=== PATIENT | female | born 1965 | race Caucasian/White ===

== ENCOUNTER 2017-04-04 07:20 | Emergency (ER) | payer OTHER ==
--- NOTE | 2017-04-04 07:43 | UC ---
Respiratory Complaint HPI - HPI Summary HPI Summary: 51 yo female with 12 day hx of facial pressure and pain/post nasal drip and cough Now feels like it is in her chest low grade fever no Cp or SOB - History of Current Complaint Chief Complaint: UCRespiratory Stated Complaint: BACK PAIN,FACIAL PRESSURE Time Seen by Provider: 04/04/17 07:36 Hx Obtained From: Patient Hx Last Menstrual Period: does not get a menses d/t having an abalation Onset/Duration: Gradual Onset, Lasting Days - 12 Timing: Constant Severity Initially: Mild Severity Currently: Moderate Pain Intensity: 4 Pain Scale Used: 0-10 Numeric Character: Cough: Nonproductive Associated Signs And Symptoms: Positive: Fever - low grade, Nasal Congestion, Hoarseness, Sinus Discomfort - Allergies/Home Medications Allergies/Adverse Reactions: Allergies Allergy/AdvReac Type Severity Reaction Status Date / Time No Known Allergies Allergy Verified 01/02/16 15:17 Home Medications: Home Medications Atomoxetine(NF) [Strattera(NF)] 60 mg PO DAILY 04/04/17 [History Confirmed 04/04] PMH/Surg Hx/FS Hx/Imm Hx Previously Healthy: Yes Endocrine History: Thyroid Disease - Surgical History Surgical History: Yes Surgery Procedure, Year, and Place: ablation - Family History Known Family History: Positive: Cardiac Disease Negative: Hypertension, Diabetes - Social History Alcohol Use: Rare Substance Use Type: None Smoking Status (MU): Never Smoked Tobacco - Immunization History Most Recent Influenza Vaccination: [id number] Review of Systems Constitutional: Fever Skin: Negative Eyes: Negative ENT: Dental Pain, Nasal Discharge, Sinus Congestion, Sinus Pain/Tenderness Respiratory: Cough Cardiovascular: Negative Gastrointestinal: Negative Genitourinary: Negative Motor: Negative Neurovascular: Negative Musculoskeletal: Negative Neurological: Negative Psychological: Negative All Other Systems Reviewed And Are Negative: Yes Physical Exam Triage Information Reviewed: Yes Appearance: Well-Appearing, No Pain Distress, Well-Nourished Vital Signs: Initial Vital Signs Temp 97.9 F 04/04/17 07:25 Pulse 84 04/04/17 07:25 Resp 16 04/04/17 07:25 BP 139/80 04/04/17 07:25 Pulse Ox 98 04/04/17 07:25 Vital Signs Reviewed: Yes Eyes: Positive: Conjunctiva Clear ENT: Positive: Hearing grossly normal, Nasal congestion, Nasal drainage, TMs normal, Other: - bilat max sinus tenderness. Negative: Tonsillar swelling, Tonsillar exudate, Trismus, Muffled/hoarse voice Neck: Positive: Supple, Nontender, No Lymphadenopathy Respiratory: Positive: No respiratory distress, No accessory muscle use, Rhonchi - with forced expiration Cardiovascular: Positive: RRR, No Murmur Musculoskeletal: Positive: ROM Intact, No Edema Neurological: Positive: Alert Psychological Exam: Normal Skin Exam: Normal UC Diagnostic Evaluation - Laboratory O2 Sat by Pulse Oximetry: 98 - normal/not hypoxic Respiratory Course/Dx - Differential Dx/Diagnosis Provider Diagnoses: sinusitis. bronchitis Discharge - Discharge Plan Condition: Stable Disposition: HOME Prescriptions: Amoxicillin PO (*) [Amoxicillin 875 MG (*)] 875 mg PO BID #20 tab Patient Education Materials: Sinusitis (ED) Referrals: Reny Marcano MD [Primary Care Provider] - 5 Days (if not improved ) Additional Instructions: warm facial compresses saline nasal spray flonase
[2017-04-04 07:45] VITALS: BP 139/80
== END 2017-04-04 07:51 | disposition home or self-care (01) ==
LOC: UCCORT 07:20
DX: J32.9 Chronic sinusitis, unspecified (principal); J40 Bronchitis, not specified as acute or chronic; R50.9 Fever, unspecified; E07.9 Disorder of thyroid, unspecified
CPT/HCPCS: 99212; G0463

== ENCOUNTER 2018-01-11 08:01 | Emergency (ER) | payer OTHER ==
[2018-01-11 08:12] VITALS: BP 126/79
[2018-01-11] MEDS ORDERED: Benzonatate CAP* 100 MG PO ONE (08:28)
[2018-01-11] MEDS ORDERED: Albuterol HFA INHALER* 8 gm MDI INH ONE ×2 (08:28→08:31)
--- NOTE | 2018-01-11 08:32 | UC ---
Respiratory Complaint HPI - HPI Summary HPI Summary: 52 year old female with history of thyroid disease here with cough for two weeks. Reports symptoms started two weeks ago with generalized myalgia but no n/v/d. States rhinorrhea, congestion partially subsided but continued to have productive cough, prompting her to come to the ED. She states today she had SOB when she tried to go hiking but no JUSTICE with her ADLs or chest pain. No PE/DVT risk factor. - History of Current Complaint Chief Complaint: UCRespiratory Stated Complaint: COUGH, CONGESTION, ACHY Time Seen by Provider: 01/11/18 08:04 Hx Obtained From: Patient Hx Last Menstrual Period: ablasion Onset/Duration: Sudden Onset Severity Initially: Mild Pain Intensity: 0 Character: Cough: Productive Aggravating Factors: Recumbent Position Alleviating Factors: Upright Position Associated Signs And Symptoms: Positive: Dyspnea, Fever, Chills, Nasal Congestion - Allergies/Home Medications Allergies/Adverse Reactions: Allergies Allergy/AdvReac Type Severity Reaction Status Date / Time No Known Allergies Allergy Verified 01/11/18 08:12 PMH/Surg Hx/FS Hx/Imm Hx Previously Healthy: No Endocrine History: Hypothyroidism - Surgical History Surgical History: Yes Surgery Procedure, Year, and Place: ablation - Family History Known Family History: Positive: None, Cardiac Disease Negative: Hypertension, Diabetes - Social History Alcohol Use: Rare Substance Use Type: None Smoking Status (MU): Never Smoked Tobacco - Immunization History Most Recent Influenza Vaccination: [id number] Review of Systems Constitutional: Chills Skin: Negative Eyes: Negative ENT: Negative Respiratory: Shortness Of Breath, Cough Cardiovascular: Negative Gastrointestinal: Negative Genitourinary: Negative Motor: Negative Neurovascular: Negative Musculoskeletal: Negative Neurological: Negative Psychological: Negative All Other Systems Reviewed And Are Negative: Yes Physical Exam Triage Information Reviewed: Yes Vital Signs: Initial Vital Signs Temp 37.1 C 01/11/18 08:06 Pulse 97 01/11/18 08:06 Resp 18 01/11/18 08:06 BP 126/79 01/11/18 08:06 Pulse Ox 100 01/11/18 08:06 Vital Signs Reviewed: Yes Respiratory Exam: Normal Cardiovascular: Positive: RRR Musculoskeletal Exam: Normal Musculoskeletal: Positive: No Edema Skin Exam: Normal UC Diagnostic Evaluation - Laboratory O2 Sat by Pulse Oximetry: 100 - Radiology Xray Interpretation: Positive (See Comments) - No consolidation but inflated lungs with concern for obstructive pathology. Radiology Interpretation Completed By: Radiologist Respiratory Course/Dx - Course Course Of Treatment: 52 year old female with URI and sob. No concern for ACS/ PE. Most likely reactive airway disease - Differential Dx/Diagnosis Differential Diagnosis/HQI/PQRI: Bronchitis, Laryngitis, Lower Resp Infection Provider Diagnoses: Bronchitis vs. Reactive airway disease Discharge - Sign-Out/Discharge Documenting (check all that apply): Discharge/Admit/Transfer - Discharge Plan Condition: Good Disposition: HOME Prescriptions: Azithromycin TAB* [Zithromax TAB (Z-MAURICE) 250 mg #6 tabs] 2 tab PO .TODAY, THEN 1 DAILY #1 maurice Benzonatate CAP* [Tessalon 100 MG CAP*] 100 mg PO TID PRN 5 Days #15 cap PRN Reason: Cough Patient Education Materials: Upper Respiratory Infection (ED), Acute Bronchitis (ED) Referrals: Rubi Lovelace MD [Primary Care Provider] - Additional Instructions: You need to follow up with your primary care doctor for referral to mechanical drawing teacher and repeat XRay. - Billing Disposition and Condition Condition: GOOD Disposition: HOME
--- NOTE | 2018-01-11 09:04 | RAD ---
INDICATION: 2 weeks cough and shortness of breath. COMPARISON: November 16, 2004 TECHNIQUE: Dual energy PA and routine lateral views of the chest were obtained. REPORT: Elevated lung volumes. No focal pulmonary lesion, compelling alveolar consolidation, pleural effusion, pneumothorax. The heart, pulmonary vasculature, and mediastinal contours are unremarkable. IMPRESSION: 1. No evidence for pneumonia. 2. Elevated lung volumes suggest potential obstructive lung disease.
== END 2018-01-11 09:14 | disposition home or self-care (01) ==
LOC: UCCORT 08:01
DX: R05 Cough (principal); M79.1 Myalgia; R06.02 Shortness of breath; J34.89 Other specified disorders of nose and nasal sinuses
CPT/HCPCS: 71046; 99213; A9270-GY; G0463

== ENCOUNTER 2018-09-18 18:08 | Emergency (ER) | payer OTHER ==
[2018-09-18 19:58] VITALS: BP 141/91
[2018-09-18] MEDS: Cephalexin CAP* 500 MG PO ONE (20:57)
--- NOTE | 2018-09-18 21:01 | UC ---
Complaint Female HPI - HPI Summary HPI Summary: Patient is a 53-year-old female who presents to the for right ear pain, sinus congestion, sore throat times several days. Patient also notes dysuria, hematuria and frequency that started yesterday. Past medical history of hyper thyroidism. Patient denies fever, abdominal pain, vomiting, flank pain. Symptoms are mild in severity. No current modifying factors. - History Of Current Complaint Chief Complaint: UCGeneralIllness Stated Complaint: EAR ACHE/URINARY Time Seen by Provider: 09/18/18 20:07 Hx Obtained From: Patient Hx Last Menstrual Period: ablasion Pain Intensity: 5 - Allergies/Home Medications Allergies/Adverse Reactions: Allergies Allergy/AdvReac Type Severity Reaction Status Date / Time No Known Allergies Allergy Verified 09/18/18 19:58 PMH/Surg Hx/FS Hx/Imm Hx Previously Healthy: Yes - Surgical History Surgical History: Yes Surgery Procedure, Year, and Place: ablation - Family History Known Family History: Positive: None, Cardiac Disease Negative: Hypertension, Diabetes - Social History Occupation: Employed Full-time Lives: With Family Alcohol Use: Rare Substance Use Type: None Smoking Status (MU): Never Smoked Tobacco - Immunization History Most Recent Influenza Vaccination: [id number] Review of Systems All Other Systems Reviewed And Are Negative: Yes Constitutional: Positive: Chills Skin: Positive: Negative Eyes: Positive: Negative ENT: Positive: Sore Throat, Ear Ache Respiratory: Positive: Negative Cardiovascular: Positive: Negative Gastrointestinal: Positive: Negative. Negative: Abdominal Pain, Vomiting, Nausea Genitourinary: Positive: Dysuria, Hematuria, Frequency Musculoskeletal: Positive: Negative Neurological: Positive: Negative Is Patient Immunocompromised?: No Physical Exam Triage Information Reviewed: Yes Appearance: Well-Appearing - Pt. sitting on bed in NAD> Vital Signs: Initial Vital Signs Temp 98.6 F 09/18/18 19:54 Pulse 104 09/18/18 19:54 Resp 16 09/18/18 19:54 BP 141/91 09/18/18 19:54 Pulse Ox 100 09/18/18 19:54 Vital Signs Reviewed: Yes Eye Exam: Normal Eyes: Positive: Conjunctiva Clear ENT: Positive: Other - Tonsilectomy. Injection throughout. Left TM unremarkable. Right TM retracted. Neck exam: Normal Neck: Positive: Supple, Nontender Respiratory: Positive: Chest non-tender, Lungs clear Cardiovascular: Positive: RRR, No Murmur Abdomen Description: Positive: Nontender, Soft. Negative: CVA Tenderness (R), CVA Tenderness (L) Neurological Exam: Normal Psychological Exam: Normal Skin Exam: Normal Complaint Female Dx - Course Course Of Treatment: Patient with upper respiratory symptoms as well as urinary symptoms. She is afebrile well-appearing. Urinalysis shows RBCs leukocytes, given symptoms will treat for suspected UTI with Keflex. Flonase prescribed for URI. Advised ibuprofen for pain as directed. Increase fluids and rest. Close follow-up with PCP. Return to the urgent care symptoms change or worsen. Patient understands and agrees with plan. First dose of antibiotic given tonight. - Differential Dx/Diagnosis Differential Diagnosis/HQI/PQRI: Renal Colic, Urinary Tract Infection Provider Diagnosis: UTI (urinary tract infection), URI (upper respiratory infection) Discharge - Sign-Out/Discharge Documenting (check all that apply): Patient Departure All imaging exams completed and their final reports reviewed: No Studies - Discharge Plan Condition: Good Disposition: HOME Prescriptions: Cephalexin CAP* [Keflex CAP*] 500 mg PO BID #20 cap Fluticasone NASAL SPRAY 50MCG* [Flonase NASAL SPRAY 50MCG*] 2 spray BOTH NARES DAILY #1 btl Patient Education Materials: Urinary Tract Infection in Women (ED), Upper Respiratory Infection (ED) Referrals: Monty Seay MD [Primary Care Provider] - Additional Instructions: Schedule a follow up appointment with PCP Medication as directed Increase fluids and rest Ibuprofen for pain as directed Return to UC or go to ER if symptoms change or worsen - Billing Disposition and Condition Condition: GOOD Disposition: Home - Attestation Statements Provider Attestation: Per institutional requirements, I have reviewed the chart, however, I was not consulted specifically or made aware of this patient by the midlevel provider. I did not personally evaluate, interact with , or disposition this patient.
== END 2018-09-18 20:59 | disposition home or self-care (01) ==
LOC: UCCORT 18:08
DX: N39.0 Urinary tract infection, site not specified (principal); J06.9 Acute upper respiratory infection, unspecified
CPT/HCPCS: 81003; 87077; 87086; 87186; 99212; A9270-GY; G0463

== ENCOUNTER 2019-03-14 21:35 | Emergency (ER) | payer OTHER ==
[2019-03-14 21:45] VITALS: BP 134/90
--- NOTE | 2019-03-14 21:56 | UC ---
Skin Complaint HPI - HPI Summary HPI Summary: Pt presents with concern about insect bite to right upper arm. Pt reports that she was bit ~ 1 week ago and has been applying antibiotic ointment and applying a bandage. She reports that the wound has been getting smaller but her family members thought that the wound "looked infected". Pt denies fever chills, drainage, red streaking or swelling. - History of Current Complaint Chief Complaint: UCSkin Time Seen by Provider: 03/14/19 21:42 Stated Complaint: BUG BITE Hx Obtained From: Patient Hx Last Menstrual Period: ablasion ?: No Onset/Duration: Sudden Onset, Lasting Days, Still Present, Resolved Skin Exposure Onset/Duration: Days Ago - 7 Timing: Constant Onset Severity: Moderate Current Severity: Mild Pain Intensity: 0 Location: Discrete - right upper lateral mid arm Character: Redness Aggravating Factor(s): Nothing Alleviating Factor(s): Other - antibiotic ointment and bandage Associated Signs & Symptoms: Positive: Negative Related History: Insect Bite/Sting - Allergy/Home Medications Allergies/Adverse Reactions: Allergies Allergy/AdvReac Type Severity Reaction Status Date / Time shellfish derived Allergy Difficulty Verified 03/14/19 21:45 Breathing PMH/Surg Hx/FS Hx/Imm Hx Previously Healthy: Yes - Surgical History Surgical History: Yes Surgery Procedure, Year, and Place: ablation - Family History Known Family History: Positive: None, Cardiac Disease Negative: Hypertension, Diabetes - Social History Occupation: Employed Full-time Lives: With Family Alcohol Use: Rare Substance Use Type: None Smoking Status (MU): Never Smoked Tobacco Have You Smoked in the Last Year: No - Immunization History Most Recent Influenza Vaccination: [id number] Most Recent Tetanus Shot: unknown Vaccination Up to Date: Yes Review of Systems All Other Systems Reviewed And Are Negative: Yes Constitutional: Positive: Negative Skin: Positive: Other - healing wound/insect bite right upper arm ENT: Positive: Negative Respiratory: Positive: Negative Cardiovascular: Positive: Negative Gastrointestinal: Positive: Negative Genitourinary: Positive: Negative Motor: Positive: Negative Neurovascular: Positive: Negative Musculoskeletal: Positive: Negative Neurological: Positive: Negative Psychological: Positive: Negative Is Patient Immunocompromised?: No Physical Exam Triage Information Reviewed: Yes Appearance: Well-Appearing Vital Signs: Initial Vital Signs Temp 97.9 F 03/14/19 21:41 Pulse 89 03/14/19 21:41 Resp 16 03/14/19 21:41 BP 134/90 03/14/19 21:41 Pulse Ox 100 03/14/19 21:41 Vital Signs Reviewed: Yes Eye Exam: Normal ENT: Positive: Hearing grossly normal Dental Exam: Normal Neck exam: Normal Respiratory: Positive: No respiratory distress Musculoskeletal Exam: Normal Neurological Exam: Normal Psychological Exam: Normal Skin Exam: Other - healing wound right lateral upper arm Course/Dx - Differential Diagnoses - Skin Complaint Differential Diagnoses: Cellulitis, MRSA - Diagnoses Provider Diagnosis: Healing wound Discharge - Sign-Out/Discharge Documenting (check all that apply): Patient Departure All imaging exams completed and their final reports reviewed: No Studies - Discharge Plan Condition: Stable Disposition: HOME Patient Education Materials: Insect Bite or Sting (ED), Acute Wound Care (ED) Referrals: Monty Seay MD [Primary Care Provider] - If Needed - Billing Disposition and Condition Condition: STABLE Disposition: Home - Attestation Statements Provider Attestation: Per institutional requirements, I have reviewed the chart, however, I was not consulted specifically or made aware of this patient by the midlevel provider. I did not personally evaluate, interact with , or disposition this patient.
== END 2019-03-14 21:54 | disposition home or self-care (01) ==
LOC: UCCORT 21:35
DX: S40.861A Insect bite (nonvenomous) of right upper arm, initial encounter (principal); W57.XXXA Bitten or stung by nonvenomous insect and other nonvenomous arthropods, initial encounter; Y93.9 Activity, unspecified; Y92.9 Unspecified place or not applicable
CPT/HCPCS: 99211; G0463

== ENCOUNTER → 2019-04-17 06:39 | Day surgery (SDC) | payer OTHER ==
[~2019-04-17 06:39] MED LIST: Acetaminophen TAB* 325 MG PO PRN; Buffered Lidocaine 1% SYRIN* 1 ML/SYRINGE INTRADERM ONE; Bupivacaine 0.25% SDV PF* 10 ML VIAL INJ ONE; Dexamethasone IV* 4 MG/ML 1 ML (4 MG) IV SLOW PU ONE; Dexamethasone IV* 4 MG/ML 1 ML (4 MG) ONE; DiMENhydriNATE IV* 50 MG/ML VIAL IV PUSH PRN; DiMENhydriNATE IV* 50 MG/ML VIAL ONE; Esmolol* 10 MG/ML 10 ML (100 mg) ONE; Lactated Ringers 1000 ML Bag* 1,000 ML IV SCH; Lidocaine 1% INJ* 10 MG/ML 30 ML SDV ONE; Lidocaine 2% PF * 5 ML VIAL ONE; Midazolam* 1 MG/ML 2 ML VIAL (2 MG) ONE; Naloxone* 0.4 MG/ML 1 ML VIAL IV PRN; Ondansetron INJ* 2 MG/ML VIAL ONE; Propofol* 10 MG/ML 20 ML BTL ONE; Scopolamine 1.5 mg* PATCH ONE; Scopolamine 1.5 mg* PATCH TRANSDERM SCH; Succinylcholine* 20 MG/ML 10 ML VIAL ONE; fentaNYL* 50 MCG/ML 2 ML VIAL (100 MCG VIAL) ONE; oxyCODONE/Acetamin 5/325 MG* TAB ONE; oxyCODONE/Acetamin 5/325 MG* TAB PO PRN
[2019-04-17] MEDS: fentaNYL* 50 MCG/ML 2 ML VIAL (100 MCG VIAL) IV PRN ×2 (12:04→12:30)
--- NOTE | 2019-04-17 13:29 | OP ---
CC: Dr. Donnell Stearns * DATE OF OPERATION: 04/17/19 - SDS DATE OF : 69 SERVICE: General Surgery. ATTENDING SURGEON: Keira Winston MD ENGINE EMISSION TECHNICIAN: Ana Calvillo NP ANESTHESIOLOGIST: Dr. Albert Aiken. ANESTHESIA: General endotracheal anesthesia. PREP-OP DIAGNOSIS: Right toxic adenoma, biopsied as Buckingham IV. POST-OP DIAGNOSIS: Right toxic adenoma, biopsied as Buckingham IV. OPERATIVE PROCEDURE: Right thyroid lobectomy. SPECIMEN: Right thyroid lobe. ESTIMATED BLOOD LOSS: Minimal, less than 10 cc. INDICATION FOR SURGERY: Ms. Meneses is a very pleasant 53-year-old female with a longstanding history of right thyroid toxic adenoma. She also had multiple other thyroid nodules that were biopsied and the one on the right side was also biopsied as Buckingham IV nodule. Given this and the fact that she also had a right toxic adenoma she wished to undergo a right thyroid lobectomy. She understood the risks, benefits and alternative to procedure and she wished to proceed. DESCRIPTION OF PROCEDURE: The patient was brought back to the operating room and placed on the operating table in a supine position. Sequential compression devices were placed in the bilateral lower extremities for DVT prophylaxis. No antibiotics were administered. The patient underwent general endotracheal anesthesia and the electrodes with nerve monitor were attached. Next a time- out was performed verifying the patient's name, MR number, the procedure to be performed. Local anesthesia consisting of 0.25% Marcaine and 1% lidocaine was administered to her anterior neck. After this, the neck was prepped and draped in a normal sterile fashion. An additional time-out was performed verifying the patient's name, MR number and the procedure to be performed. An approximately 4 cm transverse skin incision was made at the mid anterior neck in a natural crease line, approximately 2 fingerbreadths above the sternal notch. The skin was divided down through the subcutaneous tissue and then the platysma was divided. The inferior and superior subplatysmal flaps were then developed and then the median raphe between the strap muscles were identified and retracted laterally. After this the isthmus was divided at the midline and retracted towards the right side. The medial attachments of the right thyroid lobe to the trachea were divided using LigaSure. Next, the Space of Frank, located between the cricothyroid muscle and the upper pole, was divided. Next the space lateral to the right thyroid lobe was developed using blunt dissection. The superior pole vessels were were then divided using a combination of LigaSure and 2-0 silk ties. Once the upper pole was divided the right thyroid lobe was rotated medially and lifted out of the neck. The recurrent laryngeal nerve was easily identified both visually and with nerve monitor and its inferior and superior course was traced out in its entirety and towards the cricothyroid muscle. Once this was identified the remainder of thyroid lobe was removed off of the trachea starting at Patterson's ligament and towards the lower pole vessels. After the thyroid lobe was removed, it was examined carefully and no parathyroids were identified on the specimen. Therefore, the upper pole was marked with 2-0 silk suture and then carried off the table as specimen. After this careful examination of the right thyroid bed showed that hemostasis had been obtained. The right upper parathyroid was thought to be visualized posterior to the recurrent laryngeal nerve. The right lower parathyroid was not definitively identified, however, it was not visualized also either on the specimen. Hemostasis was obtained. Tisseel was placed into the right lateral neck and the strap muscles were reapproximated using interrupted 4-0 Vicryl sutures. The platysma was reapproximated using 4- 0 Vicryl sutures and then the skin was closed using running 5-0 Prolene suture. Sterile dressing was then placed, the patient's anesthesia was reversed and she was taken to the PACU in stable condition. At the end of the case all counts were correct and I was present during the entirety of the case. [id number]/[facility] #: [id number] AJ
[2019-04-17 16:02] VITALS: BP 136/84
== END | disposition home or self-care (01) ==
LOC: OR 06:39
PROVIDERS: ATTEND Surgery
DX: D34 Benign neoplasm of thyroid gland (principal); E05.20 Thyrotoxicosis with toxic multinodular goiter without thyrotoxic crisis or storm; R00.0 Tachycardia, unspecified; R00.2 Palpitations; F90.9 Attention-deficit hyperactivity disorder, unspecified type; J30.2 Other seasonal allergic rhinitis
CPT/HCPCS: 88307; 93005; A9270-GY; C1776; J0330; J1100; J1240; J2250; J2405; J2704; J3010; J3490